=== PATIENT | female | born 1965 | race Caucasian/White ===

== ENCOUNTER → 2018-12-13 | Outpatient (CLI) | payer OTHER ==
[~2018-12-13] MED LIST: ACET65TA OR; CEFT500T; CEFT500T OR; COLA100C2; DARV100T; FERR325T; FERR325T OR; IBUP600T OR; No Historical Meds; VICO5TAB; VICO5TAB OR
== END ==
LOC: M LRY 09:53
PROVIDERS: ATTEND Nurse Practitioner Family
DX: N30.01 Acute cystitis with hematuria (principal)

== ENCOUNTER → 2018-12-13 | Outpatient (REF) | payer OTHER ==
[2018-12-13 17:43] LABS: CHLAMYDIA DNA AMPLIFICATION NEGATIVE (NEGATIVE); GC DNA AMPLIFICATION NEGATIVE (NEGATIVE)
== END ==
LOC: M SFHCLERA 13:46
PROVIDERS: ATTEND Nurse Practitioner Family
DX: N30.01 Acute cystitis with hematuria (principal)

== ENCOUNTER → 2020-12-21 | Outpatient (CLI) | payer OTHER ==
[~2020-12-21] MED LIST changes: +PROHANCE 279.3MG/ML 15ML VIAL As Ordered ONE
--- NOTE | 2020-12-21 12:40 | REP ---
INDICATION: LBP W/ PAIN DOWN LT HIP/LEG. COMPARISON: Radiographs 06/21/2011. TECHNIQUE: Sagittal axial images performed prior to and following the intravenous administration of 10 mL ProHance. FINDINGS: The vertebral bodies normal in height and well aligned with normal lumbar lordosis. No abnormal bone marrow signal or enhancement is seen. The conus is unremarkable. At L1-2 and L2-3 levels there is no significant disc bulging or herniation. There is no spinal stenosis or foraminal narrowing. At L3-4 there is mild diffuse disc bulging with hypertrophic change of the facet joints and ligamentum flavum. There is slight compression of the thecal sac at this level. At L4-5 there is minimal 1-2 mm anterolisthesis of L4 on L5. There is diffuse disc bulging. There is moderate hypertrophic change at the facet joints with mild fluid in those joints. There is hypertrophy of the ligamentum flavum. There is mild central canal stenosis. The nerve roots do not appear to be significantly compressed in the neural foramina. At L5-S1 there is mild diffuse disc bulging. There is moderate hypertrophic change of the facet joints and ligamentum flavum. There is slight compression of the thecal sac. There is moderate left-sided foraminal narrowing at this level. IMPRESSION: Degenerative disc changes and bulging as above, facet arthropathy and ligamentum flavum hypertrophy. There is mild central canal stenosis at L4-5. There is mild indentation of the thecal sac at L3-4 and L5-S1. There is moderate foraminal narrowing on the left at L5-S1. <Electronically signed by Tate Raygoza > 12/21/20 [id number]
== END ==
LOC: M RAD 08:49
PROVIDERS: ATTEND Physical Medicine & Rehabilitation
DX: M51.36 Other intervertebral disc degeneration, lumbar region (principal)
CPT/HCPCS: 72158; A9576

== ENCOUNTER → 2021-05-09 | Outpatient (CLI) | payer MEDICARE ==
[~2021-05-09] MED LIST changes: -PROHANCE 279.3MG/ML 15ML VIAL As Ordered ONE
== END ==
LOC: M RAD 09:50
PROVIDERS: ATTEND Family Medicine
DX: Z12.2 Encounter for screening for malignant neoplasm of respiratory organs (principal); R91.8 Other nonspecific abnormal finding of lung field

== ENCOUNTER 2021-05-15 10:42 | Emergency (ER) | payer MEDICARE ==
[~2021-05-15] VITALS: Ht 157.5 cm; Wt 54.5 kg
[2021-05-15] MEDS ORDERED: TIZA10TA (14:42)
[2021-05-15] MEDS ORDERED: TRAM50TA2 (14:42)
[2021-05-15] MEDS ORDERED: PRAV10TA3 (14:42)
[2021-05-15 14:53] LABS: BASO # 0.1 10^3/uL (0.0-0.2); BASO % 0.5 % (0.0-1.0); EOS # 0.2 10^3/uL (0.0-0.5); EOS % 1.5 % (0.0-3.0); HEMATOCRIT 43.8 % (36.0-47.0); HEMOGLOBIN 14.9 g/dl (12.0-15.5); LYMPH # 2.1 10^3/uL (1.5-5.0); LYMPH % 17.4 % (24.0-44.0); MEAN CORPUSCULAR HEMOGLOBIN 31.7 pg (27.0-33.0); MEAN CORPUSCULAR VOLUME 93.2 fl (80.0-96.0); MONO # 0.7 10^3/uL (0.0-0.8); MONO % 5.6 % (2.0-8.0); NEUTROPHILS # 9.1 10^3/uL (1.5-8.5); NEUTROPHILS % 74.7 % (36.0-66.0); PLATELET COUNT, AUTOMATED 316 10^3/uL (150-450); WHITE BLOOD COUNT 12.2 10^3/uL (4.0-10.0)
[2021-05-15] MEDS ORDERED: KETOROLAC 30 MG/ML 1ML VIAL IV ONE (14:55)
[2021-05-15] MEDS ORDERED: ISOVUE-370 76% 100ML VIAL As Ordered ONE (14:59)
[2021-05-15 15:16] LABS: ERYTHROCYTE SEDIMENTATION RATE 24 mm/hr (0-30)
[2021-05-15 15:27] LABS: C REACTIVE PROTEIN QUANTITATIV 2.01 MG/DL (0.00-0.30); FREE T4 1.16 NG/DL (0.76-1.46); THYROID STIMULATING HORMONE 1.95 uIU/ML (0.358-3.740)
[2021-05-15] MEDS ORDERED: NORCO, ANEXSIA 5/325MG TABLET (HYDROcodone/ACETAMINOPHEN) PO ONE (16:25)
[2021-05-15] MEDS ORDERED: HYDR-3713 PO (18:35)
[2021-05-15] MEDS ORDERED: NORCO 5/325MG TABLET (BULK FOR ED) PO ONE (18:45)
[2021-05-15 19:05] VITALS: BP 158/79
== END 2021-05-15 19:06 | disposition home or self-care (01) ==
LOC: M ED 10:42
DX: G89.29 Other chronic pain (principal); M54.2 Cervicalgia; F17.200 Nicotine dependence, unspecified, uncomplicated; R13.10 Dysphagia, unspecified; Z88.1 Allergy status to other antibiotic agents; Z88.2 Allergy status to sulfonamides; Z88.6 Allergy status to analgesic agent
CPT/HCPCS: 36415; 70491; 80047; 84439; 84443; 85025; 85652; 86140; 99284; J1885; Q9967

== ENCOUNTER → 2021-08-19 | Outpatient (CLI) | payer MEDICARE ==
[~2021-08-19] MED LIST changes: +HYDR-3713 PO; +PRAV10TA3; +TIZA10TA; +TRAM50TA2
== END ==
LOC: M RAD 09:22
PROVIDERS: ATTEND Internal Medicine Pulmonary Disease
DX: R91.8 Other nonspecific abnormal finding of lung field (principal)

== ENCOUNTER → 2021-11-07 | Outpatient (REF) | payer MEDICARE | LOC: M SFHCLERA 11:25 | PROVIDERS: ATTEND Family Medicine | DX: R30.0 Dysuria (principal); R39.15 Urgency of urination; R35.0 Frequency of micturition ==

== ENCOUNTER → 2021-12-03 | Outpatient (CLI) | payer OTHER, MEDICARE ==
[2021-12-03 14:10] LABS: BLOOD UREA NITROGEN 12 MG/DL (7-18); CREATININE FOR GFR 0.57 MG/DL (0.55-1.30); GLOMERULAR FILTRATION RATE > 60.0 (>51)
== END ==
LOC: M PLALAB 09:39
PROVIDERS: ATTEND Physical Medicine & Rehabilitation
DX: M54.50 Low back pain, unspecified (principal)

== ENCOUNTER → 2021-12-03 | Outpatient (CLI) | payer MEDICARE ==
[2021-12-03 14:14] LABS: ALBUMIN 3.6 GM/DL (3.2-5.2); ALT/SGPT 14 U/L (12-78); BILIRUBIN,TOTAL 0.3 MG/DL (0.2-1.0); BLOOD UREA NITROGEN 13 MG/DL (7-18); CALCIUM LEVEL 8.7 MG/DL (8.5-10.1); CARBON DIOXIDE LEVEL 29 MEQ/L (21-32); CHLORIDE LEVEL 107 MEQ/L (98-107); CHOLESTEROL LEVEL 179 MG/DL (<200); CHOLESTEROL RISK RATIO 3.033 (<5); CREATININE FOR GFR 0.59 MG/DL (0.55-1.30); GLOMERULAR FILTRATION RATE > 60.0 (>51); GLUCOSE, FASTING 95 MG/DL (70-100); HDL CHOLESTEROL 59 MG/DL (>40); LDL CHOLESTEROL 100 MG/DL (<100); NON-HDL-C 120 MG/DL; POTASSIUM SERUM 3.7 MEQ/L (3.5-5.1); SODIUM LEVEL 140 MEQ/L (136-145); TOTAL PROTEIN 6.9 GM/DL (6.4-8.2); TRIGLYCERIDES LEVEL 101 MG/DL (<150)
== END ==
LOC: M PLALAB 09:33
PROVIDERS: ATTEND Family Medicine
DX: E78.5 Hyperlipidemia, unspecified (principal)

== ENCOUNTER → 2022-05-12 | Outpatient (CLI) | payer MEDICARE, OTHER | LOC: M RAD 10:15 | PROVIDERS: ATTEND Internal Medicine Pulmonary Disease | DX: R91.8 Other nonspecific abnormal finding of lung field (principal) ==

== ENCOUNTER → 2022-07-02 | Outpatient (REF) | LOC: M PLALAB 13:15 | PROVIDERS: ATTEND Internal Medicine | DX: Z11.52 Encounter for screening for COVID-19 (principal) ==

== ENCOUNTER → 2022-08-21 | Outpatient (CLI) | payer OTHER | LOC: M RAD 14:50 | PROVIDERS: ATTEND Internal Medicine Pulmonary Disease | DX: R91.8 Other nonspecific abnormal finding of lung field (principal) ==

== ENCOUNTER → 2023-10-07 | Outpatient (CLI) | payer MEDICAID, MEDICARE | LOC: M RAD 12:04 | PROVIDERS: ATTEND Internal Medicine Pulmonary Disease | DX: Z87.891 Personal history of nicotine dependence (principal) ==

== ENCOUNTER → 2024-12-16 | Outpatient (CLI) | payer MEDICARE, MEDICAID ==
[~2024-12-16] MED LIST changes: -PRAV10TA3; +PRAV10TA43
== END ==
LOC: M RAD 09:25
PROVIDERS: ATTEND Internal Medicine Pulmonary Disease
DX: Z12.2 Encounter for screening for malignant neoplasm of respiratory organs (principal); Z87.891 Personal history of nicotine dependence; J43.9 Emphysema, unspecified; R91.8 Other nonspecific abnormal finding of lung field; I25.10 Atherosclerotic heart disease of native coronary artery without angina pectoris; K44.9 Diaphragmatic hernia without obstruction or gangrene; I70.0 Atherosclerosis of aorta